=== PATIENT | female | born 1990 | race Hispanic/Latino ===

== ENCOUNTER 2021-04-29 12:21 | Day surgery (SDC) | payer OTHER ==
[2021-04-29] MEDS ORDERED: hydrALAZINE 20 MG/ML VIAL SLOW IVP PRN (12:40)
[2021-04-29 13:18] LABS: #Eosinphils 0.1 10x3/uL (0.0-0.5); #Monocytes 0.4 10x3/uL (0.0-1.1); #Neutrophils 3.3 10x3/uL (1.5-8.4); %Basophils 0.4 % (0.0-2.0); %Eosinophils 1.3 % (0.0-6.0); %Lymphocytes 33.5 % (18.0-47.0); %Monocytes 6.3 % (0.0-10.0); %Neutrophils 58.1 % (40.0-75.0); Hemoglobin 9.6 g/dL (12.0-15.5); Mean Corpuscular HGB CONC 31.7 g/dL (32.0-36.0); Mean Corpuscular Hemoglobin 24.6 pg (27.0-33.0); Mean Corpuscular Volume 77.5 fl (81.6-98.3); Mean Platelet Volume 10.5 fl (7.4-10.4); Platelet Count 182 10x3/uL (150-450); RBC Distribution Width 17.7 % (11.5-14.5); Red Blood Cell (RBC) Count 3.91 10x6/uL (3.90-5.03); White Blood Cell (WBC) Count 5.6 10x3/uL (3.5-10.5)
[2021-04-29 13:37] LABS: ALT (SGPT) 9 U/L (8-55); AST (SGOT) 14 U/L (5-34); Albumin 3.1 g/dL (3.5-5.0); Alkaline Phosphatase 249 U/L (40-110); Anion Gap 13 mmol/L (10-20); BUN (Urea Nitrogen) 8 mg/dL (7.0-18.7); Bilirubin, Total 0.3 mg/dL (0.2-1.2); Calc. Creatinine Clearance 0 mL/min (70-130); Calcium 8.3 mg/dL (7.8-10.44); Carbon Dioxide 18 mmol/L (22-29); Chloride 109 mmol/L (98-107); Glucose 96 mg/dL (70-105); Potassium 3.3 mmol/L (3.5-5.1); Protein, Total 7.1 g/dL (6.0-8.3); Sodium 137 mmol/L (136-145)
[2021-04-29 13:43] VITALS: BMI 30.8
[2021-04-29] MEDS ORDERED: Acetaminophen 325 MG TAB PO SCH (14:15)
[2021-04-29 15:42] LABS: Creatinine, Urine 94.45 mg/dL (47-110)
== END 2021-04-29 16:57 | disposition home health service (06) ==
LOC: CSHLD/OP 12:21
PROVIDERS: ATTEND Obstetrics & Gynecology
DX: O99.891 Other specified diseases and conditions complicating pregnancy (principal); R03.0 Elevated blood-pressure reading, without diagnosis of hypertension; R51.9 Headache, unspecified; O24.410 Gestational diabetes mellitus in pregnancy, diet controlled; O99.013 Anemia complicating pregnancy, third trimester; D50.9 Iron deficiency anemia, unspecified; Z3A.37 37 weeks gestation of pregnancy; Z79.82 Long term (current) use of aspirin; Z79.899 Other long term (current) drug therapy
CPT/HCPCS: 36415; 80053; 82570; 84156; 85025; 99285

== ENCOUNTER 2021-05-09 15:06 | Outpatient (CLI) | payer OTHER ==
[2021-05-10 18:18] LABS: SARS-CoV-2 PCR by NAA Not Detected (NotDetected)
== END 2021-05-09 15:07 | disposition home or self-care (01) ==
LOC: CSHLAB 15:06
PROVIDERS: ATTEND Emergency Medicine
DX: Z20.822 Contact with and (suspected) exposure to COVID-19 (principal)
CPT/HCPCS: U0003; U0005

== ENCOUNTER 2021-05-13 05:30 | Inpatient (IN) | payer MEDICAID, OTHER, SELFPAY ==
[2021-05-13 06:18] VITALS: BMI 31.8
[2021-05-13] MEDS: Lactated Ringer's 1,000 ML IV SCH ×2 (07:00→23:44)
[2021-05-13] MEDS ORDERED: Acetaminophen 500 MG TAB PO PRN (07:28)
[2021-05-13] MEDS ORDERED: Methylergonovine 0.2 MG/ML VIAL IM PRN (07:28)
[2021-05-13] MEDS ORDERED: Ondansetron PF 4 MG/2 ML Vial IVP PRN ×2 (07:28→16:24)
[2021-05-13] MEDS ORDERED: HYDROcodone/Acetaminophen 5/325 mg Tablet PO PRN ×2 (07:28)
[2021-05-13] MEDS ORDERED: Carboprost 250 MCG/ML AMP IM PRN (07:28)
[2021-05-13] MEDS ORDERED: Lidocaine 1% (PF) 30 ML VIAL SC PRN (07:28)
[2021-05-13] MEDS ORDERED: Misoprostol 200 MCG TAB PR PRN (07:28)
[2021-05-13] MEDS ORDERED: Ibuprofen 800 MG TAB PO PRN (07:28)
[2021-05-13] MEDS ORDERED: Promethazine HCl 25 MG/ML VIAL IM PRN ×2 (07:28→16:24)
[2021-05-13] MEDS ORDERED: NS w/ Oxytocin 30 units 500 ML IV SCH ×2 (07:30)
[2021-05-13 07:46] LABS: Hemoglobin 9.1 g/dL (12.0-15.5); Mean Corpuscular HGB CONC 29.8 g/dL (32.0-36.0); Mean Corpuscular Hemoglobin 23.7 pg (27.0-33.0); Mean Corpuscular Volume 79.4 fl (81.6-98.3); Mean Platelet Volume 11.8 fl (7.4-10.4); Platelet Count 204 10x3/uL (150-450); RBC Distribution Width 17.3 % (11.5-14.5); Red Blood Cell (RBC) Count 3.84 10x6/uL (3.90-5.03); White Blood Cell (WBC) Count 6.2 10x3/uL (3.5-10.5)
[2021-05-13 08:41] LABS: Hep B Surf Ag Non-Reactive S/CO (NonReactive); Syphilis Antibody Nonreactive (Nonreactive); Syphilis Antibody Index 0.09 S/CO (<1.00 Non-Reactive)
[2021-05-13 09:02] LABS: HBSAg Index 0.17 S/CO (0-0.99)
[2021-05-13 09:11] LABS: Glucose POC Confirmation 95 mg/dl (70-105)
[2021-05-13] MEDS ORDERED: Famotidine/PF 20 mg/2ml Vial ONE (10:08)
[2021-05-13] MEDS ORDERED: Butorphanol Tartrate 1 MG/ML VIAL SLOW IVP PRN (10:30)
[2021-05-13] MEDS: Calcium Carbonate 500 MG ChewTAB PO PRN ×2 (10:31→21:47)
[2021-05-13 10:33] LABS: #Eosinphils 0.1 10x3/uL (0.0-0.5); #Monocytes 0.4 10x3/uL (0.0-1.1); #Neutrophils 3.6 10x3/uL (1.5-8.4); %Basophils 0.6 % (0.0-2.0); %Eosinophils 1.6 % (0.0-6.0); %Lymphocytes 34.8 % (18.0-47.0); %Monocytes 6.9 % (0.0-10.0); %Neutrophils 55.6 % (40.0-75.0)
[2021-05-13] MEDS ORDERED: Carboprost 250 MCG/ML AMP ONE (10:40)
[2021-05-13] MEDS ORDERED: Misoprostol 200 MCG TAB ONE (10:41)
[2021-05-13] MEDS ORDERED: Tranexamic Acid 1,000 MG/10 ML VIAL ONE (10:41)
[2021-05-13 10:46] LABS: ALT (SGPT) 7 U/L (8-55); AST (SGOT) 14 U/L (5-34); Albumin 3.1 g/dL (3.5-5.0); Alkaline Phosphatase 312 U/L (40-110); Anion Gap 14 mmol/L (10-20); BUN (Urea Nitrogen) 11 mg/dL (7.0-18.7); Bilirubin, Total 0.2 mg/dL (0.2-1.2); Calc. Creatinine Clearance 148 mL/min (70-130); Calcium 8.4 mg/dL (7.8-10.44); Carbon Dioxide 17 mmol/L (22-29); Chloride 109 mmol/L (98-107); Globulin 3.6 g/dL (2.4-3.5); Glucose 112 mg/dL (70-105); Protein, Total 6.7 g/dL (6.0-8.3); Sodium 136 mmol/L (136-145)
[2021-05-13] MEDS ORDERED: Fentanyl 2 mcg/Bup 0.1% Cadd 100 ML ONE (12:11)
[2021-05-13 13:51] LABS: Creatinine, Urine 51.06 mg/dL (47-110)
[2021-05-13] MEDS ORDERED: ePHEDrine Sulfate 50 MG/10 ML VIAL SLOW IVP PRN (16:24)
[2021-05-13] MEDS ORDERED: diphenhydrAMINE 50 MG/ML VIAL IVP PRN (16:24)
[2021-05-13] MEDS ORDERED: Hydrocerin (Eucerin) Cream 120 gm Jar TOP PRN (16:24)
[2021-05-13] MEDS ORDERED: Lactated Ringer's 500 ML IV PRN (16:24)
[2021-05-13] MEDS ORDERED: Naloxone HCl 0.4 mg/ml Vial IVP PRN ×2 (16:24)
[2021-05-13] MEDS ORDERED: EPIDURAL Communication Order-Pharmacy FS SCH (16:30)
[2021-05-13] MEDS ORDERED: Fentanyl 2 mcg/Bupivacaine 0.1% Cassette 100 ML EPIDURAL SCH (16:30)
[2021-05-13] MEDS: hydrALAZINE 20 MG/ML VIAL SLOW IVP PRN ×2 (20:37→21:49)
[2021-05-13] MEDS ORDERED: Magnesium Sulfate 20 gm/500 ml 20 GM/500 ML BAG ONE (20:37)
[2021-05-13] MEDS ORDERED: Calcium Gluconate 4.6 MEQ in Sodium Chloride 0.9% 100 ML IVPB PRN (20:55)
[2021-05-13] MEDS ORDERED: Magnesium Sulfate 20 GM/WATER 500 ML BAG IVPB SCH (21:00)
[2021-05-13] MEDS ORDERED: Magnesium Sulfate 20 gm/500 ml 20 GM/500 ML BAG IVPB SCH (21:00)
[2021-05-13 21:19] LABS: #Basophils 0.1 10x3/uL (0.0-0.2); #Monocytes 0.8 10x3/uL (0.0-1.1); #Neutrophils 9.8 10x3/uL (1.5-8.4); %Basophils 0.4 % (0.0-2.0); %Eosinophils 0.2 % (0.0-6.0); %Lymphocytes 17.7 % (18.0-47.0); %Neutrophils 75.4 % (40.0-75.0); Hemoglobin 10.2 g/dL (12.0-15.5); Mean Corpuscular HGB CONC 30.3 g/dL (32.0-36.0); Mean Corpuscular Hemoglobin 23.8 pg (27.0-33.0); Mean Corpuscular Volume 78.7 fl (81.6-98.3); Mean Platelet Volume 11.3 fl (7.4-10.4); Platelet Count 179 10x3/uL (150-450); RBC Distribution Width 17.4 % (11.5-14.5); Red Blood Cell (RBC) Count 4.28 10x6/uL (3.90-5.03)
[2021-05-13 21:43] LABS: ALT (SGPT) 43 U/L (8-55); AST (SGOT) 64 U/L (5-34); Albumin 3.1 g/dL (3.5-5.0); Alkaline Phosphatase 310 U/L (40-110); Anion Gap 15 mmol/L (10-20); BUN (Urea Nitrogen) 6 mg/dL (7.0-18.7); Bilirubin, Total 0.4 mg/dL (0.2-1.2); Calc. Creatinine Clearance 159 mL/min (70-130); Calcium 8.7 mg/dL (7.8-10.44); Carbon Dioxide 19 mmol/L (22-29); Chloride 107 mmol/L (98-107); Globulin 4.1 g/dL (2.4-3.5); Glucose 96 mg/dL (70-105); Magnesium 4.8 mg/dL (1.6-2.6); Potassium 3.6 mmol/L (3.5-5.1); Protein, Total 7.2 g/dL (6.0-8.3); Sodium 137 mmol/L (136-145)
[2021-05-13] MEDS: Acetaminophen 325 MG TAB PO PRN (22:14)
[2021-05-14] MEDS ORDERED: Bisacodyl 10 MG SUPP PR PRN (05:05)
[2021-05-14] MEDS ORDERED: Milk Of Magnesia 30 ML UDCUP PO PRN (05:05)
[2021-05-14] MEDS ORDERED: Lanolin Ointment 7 GM TUBE TOP PRN (05:05)
[2021-05-14] MEDS ORDERED: Misoprostol 200 MCG TAB VAG PRN (05:05)
[2021-05-14] MEDS ORDERED: Preparation H Ointment 28 GM TUBE PR PRN (05:05)
[2021-05-14] MEDS ORDERED: NS w/ Oxytocin 30 units 500 ML IV SCH (05:05)
[2021-05-14] MEDS ORDERED: Benzocaine-Menthol 82.5 ML CAN TOP PRN (05:05)
[2021-05-14] MEDS ORDERED: hydrALAZINE 20 MG/ML VIAL SLOW IVP PRN (05:05)
[2021-05-14] MEDS ORDERED: diphenhydrAMINE 25 MG CAP PO PRN (05:05)
[2021-05-14] MEDS ORDERED: Ondansetron PF 4 MG/2 ML Vial IVP PRN (05:05)
[2021-05-14] MEDS ORDERED: Boostrix 0.5 ML (Tdap) VIAL IM ONE (05:05)
[2021-05-14] MEDS: Acetaminophen 325 MG TAB PO PRN (05:08)
[2021-05-14] MEDS ORDERED: Docusate 100 MG CAP PO SCH (05:15)
[2021-05-14] MEDS ORDERED: Famotidine 20 MG TAB PO SCH (12:00)
[2021-05-14] MEDS: Ibuprofen 800 MG TAB PO SCH ×3 (16:34→21:13)
[2021-05-14] MEDS ORDERED: Diclofenac 1% 100 GM GEL TP PRN (16:37)
[2021-05-14] MEDS: Ferrous Sulfate 325 MG TAB PO SCH (17:24)
[2021-05-14] MEDS: Prenatal Vitamin 1 TAB PO SCH (17:24)
[2021-05-14] MEDS: Lactated Ringer's 1,000 ML IV SCH (17:25)
[2021-05-14] MEDS: Docusate 100 MG CAP PO SCH (21:15)
[2021-05-15] MEDS: Ibuprofen 800 MG TAB PO SCH ×2 (05:22→15:44)
[2021-05-15] MEDS: Ferrous Sulfate 325 MG TAB PO SCH (07:19)
[2021-05-15] MEDS: Docusate 100 MG CAP PO SCH (08:40)
[2021-05-15] MEDS: Prenatal Vitamin 1 TAB PO SCH (08:41)
[2021-05-15] MEDS ORDERED: Famotidine 20 MG TAB PO SCH (09:00)
[2021-05-15 15:50] VITALS: BP 140/79; TEMP 99
== END 2021-05-15 17:15 | disposition home or self-care (01) | DRG 807 ==
LOC: CSHLD 05:45 → CSHPP 05-14 17:00
PROVIDERS: ADMIT Emergency Medicine; ATTEND Emergency Medicine
PROC: 10E0XZZ Delivery of Products of Conception, External Approach (ICD-10-PCS; principal; 2021-05-13)
PROC: 10907ZC Drainage of Amniotic Fluid, Therapeutic from Products of Conception, Via Natural or Artificial Opening (ICD-10-PCS; 2021-05-13)
PROC: 3E033VJ Introduction of Other Hormone into Peripheral Vein, Percutaneous Approach (ICD-10-PCS; 2021-05-13)
DX: O24.419 Gestational diabetes mellitus in pregnancy, unspecified control (principal); Z37.0 Single live birth; D50.9 Iron deficiency anemia, unspecified; O99.02 Anemia complicating childbirth; Z3A.39 39 weeks gestation of pregnancy; Z79.82 Long term (current) use of aspirin; O14.14 Severe pre-eclampsia complicating childbirth; O36.63X0 Maternal care for excessive fetal growth, third trimester, not applicable or unspecified; O70.0 First degree perineal laceration during delivery; K21.9 Gastro-esophageal reflux disease without esophagitis; O99.62 Diseases of the digestive system complicating childbirth
CPT/HCPCS: 36415; 36416; 51702; 76705; 80053; 82570; 82947; 83735; 84156; 86780; 86850; 86900; 86901; 87340; J0360; J0595; J2405; J2590; J3475; J7120